=== PATIENT | female | born 1980 | race Caucasian/White ===

== ENCOUNTER 2022-08-29 06:40 | Outpatient (CLI) | payer BC, SELFPAY ==
--- NOTE | ~2022-08-29 | MR_ITS ---
EXAMINATION: MR knee LT wo con DATE: 08/29/2022 07:32 INDICATION: Medial meniscal tear of the left knee after twisting injury while running and jumping. TECHNIQUE: Magnetic resonance imaging (MRI) of the left knee was performed without intravenous contra st. Sequences included coronal PD-weighted FSE, coronal PD-weighted FS FSE, sagittal T2-weighted FSE , sagittal PD-weighted FS FSE and axial PD weighted fat saturated FSE. COMPARISON: None. FINDINGS: Medial compartment: Medial meniscus is normal. Articular cartilage is normal. Lateral compartment: Lateral meniscus is normal. Articular cartilage is normal. Patellofemoral compartment: Articular cartilage is normal. Ligaments and tendons: Anterior cruciate ligament tear with gap sign at the femoral footplate of the posterolateral bundle a nd with lax appearance and increased signal of the fibers of the anterior medial bundle. There is a s mall amount of torn anterior cruciate ligament tissue extending anteriorly from the intercondylar not ch from the tibial footplate. Posterior cruciate ligament is normal. The medial collateral ligament a nd fibular collateral ligament complex are normal. Mild distal quadriceps and distal patellar tendino marylou without tear. The visualized medial and lateral hamstring tendons are normal. There is mild thi ckening and mild increased intrasubstance signal consistent with mild tendinopathy without tear of th e iliotibial band at the level of the medial epicondyle. There is minimal increased fluid signal in t he underlying fat which could be sequela of recent injury or more chronic sequela of iliotibial frict ion band syndrome. Fluid: Small left knee joint effusion. There is a suprapatellar plical band the simple T2 hyperin tense fluid from still T2 hyperintense but slightly less than simple fluid signal at the more cephala d aspect of the suprapatellar pouch which could represent synovitis or complex fluid/blood. No loose osteochondral bodies identified. Osseous/other: Normal marrow signal. No fracture or pathologic marrow replacing process. IMPRESSION: 1. Anterior cruciate ligament tear. Normal menisci and cartilage. 2. Mild tendinopathy without discrete tear of the iliotibial band with minimal surrounding edema whic h could be sequela of recent injury or more chronic iliotibial band friction syndrome. 3. Mild distal quadriceps and distal patellar tendinopathy. 4. Small left knee joint effusion. Reviewed, dictated and finalized at location D. [employer] IMPRESSION: 1. Anterior cruciate ligament tear. Normal menisci and cartilage. 2. Mild tendinopathy without discrete tear of the iliotibial band with minimal surrounding edema which could be sequela of recent injury or more chronic iliot ibial band friction syndrome. 3. Mild distal quadriceps and distal patellar tendinopathy. 4. Small left knee joint effusion.
== END 2022-08-29 06:41 | disposition home or self-care (01) ==
PROVIDERS: Visit Provider Orthopaedic Surgery
DX: S83.242A Other tear of medial meniscus, current injury, left knee, initial encounter (principal); S83.512A Sprain of anterior cruciate ligament of left knee, initial encounter; M76.892 Other specified enthesopathies of left lower limb, excluding foot; M25.462 Effusion, left knee
CPT/HCPCS: 73721

== ENCOUNTER → 2022-11-25 10:23 | Outpatient (CLI) | payer BC, SELFPAY ==
--- NOTE | ~2022-11-25 | MR_ITS ---
MRI of the left knee Clinical history: Status post ACL reconstruction, assess graft integrity Technique: Coronal proton density and proton density-weighted images, sagittal proton-density and T2 fat-sat images, and axial proton-density fat-saturated images were acquired. COMPARISON: 08/29/2022 Findings: Patient is status post ACL graft reconstruction. ACL graft appears intact, with normal sign al and normal orientation of fibers. The tibial interference screw/tibial tunnel however. The extreme ly anteriorly located, the very anterior margin of the proximal tibia. Interference screw protrudes i nto the intra-articular space (through the tibial plateau, by at least 1.3 cm. Posterior cruciate lig ament is intact. Medial collateral ligament and the lateral collateral ligament complex are intact. P opliteus tendon is intact. Medial and lateral menisci appear intact, without evidence of tear. Articular cartilage is well preserved throughout the knee. In addition to the tibial and femoral inte rference screws, there is an additional tract at the tibial tuberosity region. Distal quadriceps tendon is intact. Patellar tendon appears intact. Small joint effusion is present. There is mild subcutaneous soft tissue edema at the anterior knee. No Fatima's cyst evident. Impression: Status post ACL graft reconstruction. Graft fibers themselves appear intact and normally oriented, ho wever the tibial tunnel appears to be extremely anteriorly located, with the tibial interference scre w protruding intra-articularly through the tibial plateau by at least 1.3 cm. Given the extreme anter ior positioning of the tibial tunnel, is unclear how much, if any, purchase within the bone the tibia l interference screw actually has. Correlate with graft laxity, as well surgical history. Reviewed, dictated and finalized at location . Impression: Status post ACL graft reconstruction. Graft fibers themselves appear intact and normally oriented, however the tibial tunnel appears to be extremely anteriorl y located, with the tibial interference screw protruding intra-articularly thro ugh the tibial plateau by at least 1.3 cm. Given the extreme anterior positioni ng of the tibial tunnel, is unclear how much, if any, purchase within the bone the tibial interference screw actually has. Correlate with graft laxity, as wel l surgical history.
== END ==
PROVIDERS: PCP Internal Medicine; Visit Provider Orthopaedic Surgery
DX: Z98.890 Other specified postprocedural states (principal)
CPT/HCPCS: 73721

== ENCOUNTER → 2023-05-10 09:53 | Outpatient (CLI) | payer BC, SELFPAY ==
--- NOTE | ~2023-05-10 | MR_ITS ---
EXAMINATION: MR knee LT wo con DATE: 05/10/2023 10:44 INDICATION: S/P ACL reconstruction, ACL graft tear. left knee lateral/ TECHNIQUE: Magnetic resonance imaging (MRI) of the knee was performed without intravenous contrast. S equences included axial PD-weighted FS FSE, coronal PD-weighted FSE and PD-weighted FS FSE, sagittal PD-weighted FSE, and sagittal T2-weighted FS FSE. COMPARISON: 11/25/2022 FINDINGS: Medial compartment: Moderate medial cartilage thinning. No focal defect. No meniscal tear. Lateral compartment: 2 mm focal full-thickness cartilage defect on the weightbearing surface of the LFC. Moderate diffuse thinning. Apical and oblique articular surface tears of the junction of the posterior horn and body. Patellofemoral compartment: Mild diffuse thinning with focal partial thickness cartilage signal abnormality. Retinacula intact. S urgical change in the patellar tendon. Ligaments and tendons: Status post ACL repair, intact graft. The interference screw has been removed. Low signal thickening of the MCL which may represent chronic partial tear. The PCL, and LCL are intact. Remaining flexor an d extensor tendons are intact. Fluid: Moderate volume joint fluid. Synovial thickening. Osseous/other: No suspicious focal or diffuse marrow signal. IMPRESSION: Apical and oblique articular surface tears at the junction of the posterior horn and body, lateral me niscus. Status post ACL repair, graft is intact. Chronic partial MCL tear. Moderate joint effusion with synovitis Reviewed, dictated and finalized at location K. IMPRESSION: Apical and oblique articular surface tears at the junction of the posterior hor n and body, lateral meniscus. Status post ACL repair, graft is intact. Chronic partial MCL tear. Moderate joint effusion with synovitis
== END ==
PROVIDERS: PCP Orthopaedic Surgery; Visit Provider Orthopaedic Surgery
DX: M25.462 Effusion, left knee (principal); M65.9 Synovitis and tenosynovitis, unspecified; S83.412A Sprain of medial collateral ligament of left knee, initial encounter; M23.252 Derangement of posterior horn of lateral meniscus due to old tear or injury, left knee; T84.89XA Other specified complication of internal orthopedic prosthetic devices, implants and grafts, initial encounter; Z98.890 Other specified postprocedural states
CPT/HCPCS: 73721